=== PATIENT | male | born 1950 | race Caucasian/White ===

== ENCOUNTER 2019-04-02 14:36 | Emergency (ER) | payer MEDICARE, OTHER ==
[~2019-04-02] VITALS: Ht 154.9 cm; Wt 62.0 kg
[2019-04-02 16:52] VITALS: BP 139/81
== END 2019-04-02 16:52 | disposition home or self-care (01) ==
LOC: ER 15:24
DX: E11.65 Type 2 diabetes mellitus with hyperglycemia (principal); Z79.4 Long term (current) use of insulin
CPT/HCPCS: 82962; 99283